=== PATIENT | female | born 1990 | race African-American/Black ===

== ENCOUNTER 2024-08-22 11:50 | Emergency (ER) | payer SELFPAY ==
[2024-08-22] MEDS ORDERED: Ketorolac Tromethamine 30 MG (1 mL) VIAL ONE (12:43)
== END 2024-08-22 12:55 | disposition home or self-care (01) ==
LOC: CSHERS 11:50
DX: S70.311A Abrasion, right thigh, initial encounter (principal); F17.210 Nicotine dependence, cigarettes, uncomplicated; W13.3XXA Fall through floor, initial encounter
CPT/HCPCS: 96372; 99283; J1885